=== PATIENT | male | born 1990 | race Two or more races ===

== ENCOUNTER 2019-03-05 16:35 | Emergency (ER) | payer MEDICAID ==
[~2019-03-05] VITALS: Ht 193 cm; Wt 90.7 kg
[2019-03-05 18:04] LABS: Basophils # (auto) 0 uL; Basophils % (auto) 0.4 % (0.0-2.0); Eosinophils # (auto) 0.1 uL; Eosinophils % (auto) 1.4 % (0.0-7.0); Hemoglobin 15.4 g/dL (13.5-17.5); Lymphocytes # (auto) 1.2 uL; Lymphocytes % (auto) 14.2 % (10.0-50.0); Mean Corpuscular Hemoglobin 30.8 pg (28.0-32.0); Mean Corpuscular Volume 88.1 fL (80.0-100.0); Monocytes # (auto) 0.6 uL; Monocytes % (auto) 6.6 % (0.0-12.0); Neutrophils # (auto) 6.6 uL; Neutrophils % (auto) 77.4 % (37.0-80.0); Nucleated Red Blood Cells % 0.1 %; Platelet Count (auto) 289 10^3/uL (140-450); Red Cell Distribution Width 13.1 % (11.8-14.3); White Blood Cell 8.6 10^3/uL (4.4-10.8)
[2019-03-05 18:19] LABS: Albumin 4.1 g/dL (3.4-5.0); Anion Gap 6 (5-15); Blood Urea Nitrogen 15 mg/dL (7-18); Carbon Dioxide 25 mmol/L (21-32); Chloride 110 mmol/L (98-107); Glucose 91 mg/dL (74-106); INR 1.07 (0.9-1.15); Partial Thromboplastin Time 29.3 sec (23.64-32.05); Potassium 3.6 mmol/L (3.5-5.1); Sodium 141 mmol/L (136-145)
[2019-03-05 18:25] LABS: Alanine Aminotransferase 43 U/L (16-61); Alkaline Phosphatase 78 U/L (45-117); Aspartate Aminotransferase 25 U/L (15-37); BUN/Creatinine Ratio 20.5; Bilirubin, Total 0.4 mg/dL (0.2-1.0); GFR African American 163 mL/min; GFR Non-African American 135 mL/min; Total Protein 7.8 g/dL (6.4-8.2)
[2019-03-05 21:10] LABS: Urine Bacteria NONE SEEN /hpf (None Seen); Urine Blood Negative /uL (Negative); Urine Mucus FEW (None Seen); Urine Specific Gravity 1.029 (1.001-1.035); Urine WBC <1 /hpf (0 - 3)
[2019-03-06] MEDS: LORazepam 0.5 MG TAB PO ONE (00:18)
[2019-03-06 01:19] VITALS: BP 119/62
== END 2019-03-06 02:07 | disposition home or self-care (01) ==
LOC: ER 16:51
DX: R07.89 Other chest pain (principal); R51 Headache; F41.9 Anxiety disorder, unspecified
CPT/HCPCS: 36415; 71046; 80053; 81001; 84484; 85025; 85610; 85730; 93005

== ENCOUNTER 2019-08-14 21:48 | Emergency (ER) | payer MEDICAID ==
[~2019-08-14] VITALS: Ht 193 cm; Wt 90.7 kg
[2019-08-14] MEDS ORDERED: LORazepam 0.5 MG TAB PO ONE (22:15)
[2019-08-14] MEDS ORDERED: LORazepam 2MG/ML-1ML VIAL IV ONE (22:30)
[2019-08-14] MEDS ORDERED: ALUM & MAG HYDROX-SIMETH LIQ(MAALOX) 30 ML PO ONE (22:30)
[2019-08-14] MEDS ORDERED: PANTOPRAZOLE 40 MG/10 ML VIAL INJ IV ONE (22:30)
[2019-08-14] MEDS ORDERED: ONDANSETRON HCL 4 MG/2 ML VIAL IV ONE (22:30)
[2019-08-14 23:13] LABS: Basophils # (auto) 0 10 ^3/uL (0-0.2); Basophils % (auto) 0.5 % (0.0-2.0); Eosinophils # (auto) 0.2 10 ^3/uL (0-0.8); Eosinophils % (auto) 2.1 % (0.0-7.0); Hematocrit 49.1 % (41.0-53.0); Hemoglobin 16.9 g/dL (13.5-17.5); Lymphocytes # (auto) 2.5 10 ^3/uL (0.4-5.4); Lymphocytes % (auto) 31.9 % (10.0-50.0); Mean Corpuscular Hemoglobin 30.4 pg (28.0-32.0); Mean Corpuscular Hgb Conc. 34.5 g/dL (32.0-36.0); Mean Corpuscular Volume 88.1 fL (80.0-100.0); Monocytes # (auto) 0.6 10 ^3/uL (0-1.3); Monocytes % (auto) 8.1 % (0.0-12.0); Neutrophils # (auto) 4.5 10 ^3/uL (1.6-8.6); Neutrophils % (auto) 57.4 % (37.0-80.0); Nucleated Red Blood Cells % 0.4 %; Platelet Count (auto) 282 10^3/uL (140-450); Red Blood Cells 5.57 10^6/uL (4.5-5.90); White Blood Cell 7.8 10^3/uL (4.4-10.8)
[2019-08-14 23:30] LABS: Albumin 4.8 g/dL (3.4-5.0); BUN/Creatinine Ratio 12.1; Calcium 9.3 mg/dL (8.5-10.1); Potassium 3.2 mmol/L (3.5-5.1)
[2019-08-14 23:32] LABS: Bilirubin, Total 0.7 mg/dL (0.2-1.0); Total Protein 8.7 g/dL (6.4-8.2)
[2019-08-15] MEDS ORDERED: POTASSIUM EFFERVESENT TAB 25 MEQ PO ONE
[2019-08-15 02:47] VITALS: BP 114/70
== END 2019-08-15 02:50 | disposition home or self-care (01) ==
LOC: ER 21:50
DX: F41.9 Anxiety disorder, unspecified (principal); K21.9 Gastro-esophageal reflux disease without esophagitis
CPT/HCPCS: 36415; 36600; 80053; 82150; 82805; 83690; 85025; 93005; 96374; 96375; 99284; C9113; J2405